=== PATIENT | male | born 1985 | race Two or more races ===

== ENCOUNTER 2016-11-29 03:28 | Observation (INO) | payer OTHER ==
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
--- NOTE | 2016-11-29 06:28 | ED PDOC ---
- ECG O2 Sat by Pulse Oximetry: 99 (RA) Pulse Ox Interpretation: Normal Medical Decision Making Medical Decision Makin:28 Patient signed out to Provider by Tina Kelly PA-C pending sobriety and CT. 7:00 Patient signed out to Dr. Flores pending sobriety and CT. Scribe Attestation: Documented by Francisca Angelo, acting as a scribe for Adrian Whitehead MD. Provider Scribe Attestation: All medical record entries made by the Scribe were at my direction and personally dictated by me. I have reviewed the chart and agree that the record accurately reflects my personal performance of the history, physical exam, medical decision making, and the department course for this patient. I have also personally directed, reviewed, and agree with the discharge instructions and disposition. Disposition - Clinical Impression Clinical Impression: Alcohol intoxication, Head injury - POA Present On Arrival: None - Disposition Disposition: Transfer of Care Disposition Time: 06:00 Condition: FAIR Patient Signed Over To: Titus Flores (7:00)
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
[2016-11-29 07:32] VITALS: BP 132/80; PULSE 98; RESP 16; TEMP 98.2
--- NOTE | 2016-11-29 09:36 | ED PDOC ---
- ECG O2 Sat by Pulse Oximetry: 100 - Progress Re-evaluation Time: 09:35 Condition: Improved (awake alert oriented x 3 Denies SI/HI) Disposition - Clinical Impression Clinical Impression: Alcohol intoxication, Head injury - POA Present On Arrival: None - Disposition Disposition: Routine/Home Disposition Time: 09:36 Condition: FAIR
[2016-11-30 20:23] VITALS: O2SAT 99
== END 2016-11-29 15:00 | disposition home or self-care (01) ==
LOC: H.ER 03:28 → H.EROBSV 04:04
PROVIDERS: ADMIT Emergency Medicine; ATTEND Emergency Medicine
DX: F10.129 Alcohol abuse with intoxication, unspecified (principal); S09.90XA Unspecified injury of head, initial encounter; Y09 Assault by unspecified means; Y93.9 Activity, unspecified; Y92.9 Unspecified place or not applicable; Y99.9 Unspecified external cause status; Z78.1 Physical restraint status